=== PATIENT | male | born 1980 | race Caucasian/White ===

== ENCOUNTER 2018-10-16 22:43 | Emergency (ER) | payer MEDICAID, SELFPAY ==
[2018-10-16 22:48] VITALS: BP 125/70; PULSE 97; RESP 18; TEMP 36.7; O2SAT 98
--- NOTE | 2018-10-16 23:13 | W.ED.GENAD ---
Discharge Plan Disposition Patient Disposition: HOME Condition: Good Discharge Details Chief Complaint: Orthopedic Clinical Impression: Tendonitis of wrist, right Primary Care Provider: Jennifer Alves ED Provider: Jam Avitia Meds and New Rx's Prescriptions: New lidocaine [Lidoderm] 5 % Adhesive Patch,Medicated 1 patch Topical DIRECTED Qty: 5 RF: 0 ibuprofen 800 mg tablet 800 mg PO TID Qty: 20 RF: 0 Continue dextroamphetamine 10 mg capsule, extended release 10 mg PO DAILY MDD 1 cap 30 Days Qty: 30 RF: 0 Discharge Instructions Instructions: Tendinitis (ED) Additional Instructions: Wear the splint to limit movement of the thumb and wrist. Ibuprofen for anti-inflammatory effect. Lidoderm patch for pain. May also take Tylenol. Will refer to orthopedics for follow-up next week. Return to ED for fever, chills, worsening pain, worsening redness or swelling. Referrals: [facility] [Provider Group] Medical Decision Making Patient with evidence of tendinitis which may be involving the thumb and wrist extensor tendons. He does have a little bit of erythema distal forearm but no fluctuance or warmth. He is very tender in this area and pain occurs here with ROM of thumb or wrist. There is not actual pain in the wrist/thumb itself. There is no tenderness in the forearm muscles. Pulses are normal. Decreased subjective sensation in all three nerve distributions of the hand, patient states chronically numb but seems worse. He denies IV drug use. He denies fever/chills. He denies trauma. Quick bedside U/S shows no obvious abscess. Will treat as tendonitis with ibuprofen and thumb spica splint. Refer to ortho for follow up next week. Lidoderm patch on distal forearm to help with pain. Return to ED for worse pain, fever, chills, increase swelling/redness. HPI General Mode of arrival: ambulatory. Date/Time Provider Initiated Documentation: 10/16/18 23:03. Limitations to Documentation: no limitations. Information obtained by: patient. HPI Narrative: Patient presents to ED with complaint of right wrist pain. He is an ambidextrous fairchild. He started to have pain in the right wrist forearm area 1-2 days ago. Tonight it is so severe he cannot move his wrist. He denies any injury. He denies feeling ill otherwise. He has had no fevers or chills. He has tingling in his whole hand including the back of the hand and all the fingers. He is unable to make a fist because of pain. He is unable to flex the thumb at all. He has severe difficulty moving the wrist because of pain. He is not taking anything for pain. He comes in for evaluation. Related Data Home Medications Medication Instructions Recorded Confirmed dextroamphetamine ER 10 mg 10 mg PO DAILY 30 Days #30 cap MDD 10/16/18 10/16/18 capsule,extended release 1 cap ibuprofen 800 mg PO TID #20 tab 10/16/18 lidocaine [Lidoderm] 1 patch TOPICAL DIRECTED #5 ea 10/16/18 Previous Rx's Medication Instructions Recorded dextroamphetamine ER 10 mg 10 mg PO DAILY 30 Days #30 cap MDD 10/16/18 capsule,extended release 1 cap ibuprofen 800 mg PO TID #20 tab 10/16/18 lidocaine [Lidoderm] 1 patch TOPICAL DIRECTED #5 ea 10/16/18 Allergies Allergy/AdvReac Type Severity Reaction Status Date / Time morphine Allergy Intermediate HIVES Unverified 10/16/18 22:51 rofecoxib Allergy Intermediate Unverified 10/16/18 22:51 HORSE DANDER Allergy Intermediate Anaphylaxsi Uncoded 10/16/18 22:51 s General Stated Complaint: Orthopedic ARPITA: 4 Review of Systems Constitutional Denies chills and Denies fever(s) Cardiovascular Denies chest pain and Denies dyspnea Respiratory Denies dyspnea Musculoskeletal Reports arthralgias, Denies joint swelling, Reports limited range of motion and Reports tingling Integumentary/Breasts Reports erythema and Denies rash Neurologic Denies focal weakness and Reports tingling [facility] Medical History ADHD (Chronic) Migraine (Chronic) Social History Smoking/Tobacco Use Status: Current every day Surgical History Acromioplasty Arthroplasty of knee Nerve Decompression Open Carpal Tunnel release Repair, ACL SCREW REMOVAL Exam Const General: cooperative and uncomfortable Orientation: alert and oriented x3 Skin General skin exam: erythema (mild erythema along radial aspect of distal forearm) Rashes: no rashes Wounds: no wounds Neuro General: alert, oriented x3 and no focal motor deficits Sensory Exam: upper extremity (right hand tingling with subjective decreased sensation involving radial/ulna/median nerve distributions) Extrem Right upper extremity: elbow/forearm Details: tenderness Location: other (distal radial forearm) and normal ROM; no unusual warmth, wrist Details: normal to inspection, abnormal ROM Details: pain with active ROM during and pain with passive ROM during, radial pulse present and ulnar pulse present; no swelling and no unusual warmth and hand Details: normal to inspection, normal capillary refill, abnormal ROM of finger Details: pain with active ROM Location: of the thumb and pain with passive ROM Location: of the thumb and no swelling Course Vital Signs Temperature 98.1 F 10/16/18 22:48 Pulse 97 H 10/16/18 22:48 Respiratory Rate 18 10/16/18 22:48 Blood Pressure 125/70 10/16/18 22:48 Pulse Oximetry 98 10/16/18 22:48 Temperature 98.1 F 10/16/18 22:48 Temperature Source Skin 10/16/18 22:48 Pulse 97 H 10/16/18 22:48 Respiratory Rate 18 10/16/18 22:48 Respiratory Effort Non-Labored 10/16/18 22:50 Blood Pressure 125/70 10/16/18 22:48 Blood Pressure Position Sitting 10/16/18 22:48 Pulse Oximetry 98 10/16/18 22:48 Oxygen Delivery Method Room Air 10/16/18 22:48 Oxygen Flow Rate 0 10/16/18 22:48 Pain Level 8 10/16/18 22:48
[2018-10-16] MEDS: Ibuprofen 800 MG TAB PO (23:16)
--- NOTE | 2018-10-16 23:17 | ED.GENADUL_ITS ---
Discharge Plan Disposition Patient Disposition: HOME Condition: Good Discharge Details Chief Complaint: Orthopedic Clinical Impression: Tendonitis of wrist, right Primary Care Provider: Jennifer Alves ED Provider: Jam Avitia Meds and New Rx's Prescriptions: New lidocaine [Lidoderm] 5 % Adhesive Patch,Medicated 1 patch Topical DIRECTED Qty: 5 RF: 0 ibuprofen 800 mg tablet 800 mg PO TID Qty: 20 RF: 0 Continue dextroamphetamine 10 mg capsule, extended release 10 mg PO DAILY MDD 1 cap 30 Days Qty: 30 RF: 0 Discharge Instructions Instructions: Tendinitis (ED) Additional Instructions: Wear the splint to limit movement of the thumb and wrist. Ibuprofen for anti- inflammatory effect. Lidoderm patch for pain. May also take Tylenol. Will refer to orthopedics for follow-up next week. Return to ED for fever, chills, worsening pain, worsening redness or swelling. Referrals: [facility] [Provider Group] Medical Decision Making Patient with evidence of tendinitis which may be involving the thumb and wrist extensor tendons. He does have a little bit of erythema distal forearm but no fluctuance or warmth. He is very tender in this area and pain occurs here with ROM of thumb or wrist. There is not actual pain in the wrist/thumb itself. There is no tenderness in the forearm muscles. Pulses are normal. Decreased subjective sensation in all three nerve distributions of the hand, patient states chronically numb but seems worse. He denies IV drug use. He denies fever/chills. He denies trauma. Quick bedside U/S shows no obvious abscess. Will treat as tendonitis with ibuprofen and thumb spica splint. Refer to ortho for follow up next week. Lidoderm patch on distal forearm to help with pain. Return to ED for worse pain, fever, chills, increase swelling/redness. HPI General Mode of arrival: ambulatory . Date/Time Provider Initiated Documentation: 10/16/18 23:03 . Limitations to Documentation: no limitations . Information obtained by: patient . HPI Narrative: Patient presents to ED with complaint of right wrist pain. He is an ambidextrous fairchild. He started to have pain in the right wrist forearm area 1-2 days ago. Tonight it is so severe he cannot move his wrist. He denies any injury. He denies feeling ill otherwise. He has had no fevers or chills. He has tingling in his whole hand including the back of the hand and all the fingers. He is unable to make a fist because of pain. He is unable to flex the thumb at all. He has severe difficulty moving the wrist because of pain. He is not taking anything for pain. He comes in for evaluation. Related Data Home Medications Medication Instructions Recorded Confirmed dextroamphetamine ER 10 mg 10 mg PO DAILY 30 Days #30 cap MDD 10/16/18 10/16/18 capsule,extended release 1 cap ibuprofen 800 mg PO TID #20 tab 10/16/18 lidocaine [Lidoderm] 1 patch TOPICAL DIRECTED #5 ea 10/16/18 Previous Rx's Medication Instructions Recorded dextroamphetamine ER 10 mg 10 mg PO DAILY 30 Days #30 cap MDD 10/16/18 capsule,extended release 1 cap ibuprofen 800 mg PO TID #20 tab 10/16/18 lidocaine [Lidoderm] 1 patch TOPICAL DIRECTED #5 ea 10/16/18 Allergies Allergy/AdvReac Type Severity Reaction Status Date / Time morphine Allergy Intermediate HIVES Unverified 10/16/18 22:51 rofecoxib Allergy Intermediate Unverified 10/16/18 22:51 HORSE DANDER Allergy Intermediate Anaphylaxsi Uncoded 10/16/18 22:51 s General Stated Complaint: Orthopedic ARPITA: 4 Review of Systems Constitutional Denies chills and Denies fever(s) Cardiovascular Denies chest pain and Denies dyspnea Respiratory Denies dyspnea Musculoskeletal Reports arthralgias, Denies joint swelling, Reports limited range of motion and Reports tingling Integumentary/Breasts Reports erythema and Denies rash Neurologic Denies focal weakness and Reports tingling [facility] Medical History ADHD (Chronic) Migraine (Chronic) Social History Smoking/Tobacco Use Status: Current every day Surgical History Acromioplasty Arthroplasty of knee Nerve Decompression Open Carpal Tunnel release Repair, ACL SCREW REMOVAL Exam Const General: cooperative and uncomfortable Orientation: alert and oriented x3 Skin General skin exam: erythema (mild erythema along radial aspect of distal forearm ) Rashes: no rashes Wounds: no wounds Neuro General: alert, oriented x3 and no focal motor deficits Sensory Exam: upper extremity (right hand tingling with subjective decreased sensation involving radial/ulna/median nerve distributions) Extrem Right upper extremity: elbow/forearm Details: tenderness Location: other ( distal radial forearm) and normal ROM; no unusual warmth, wrist Details: normal to inspection, abnormal ROM Details: pain with active ROM during and pain with passive ROM during, radial pulse present and ulnar pulse present; no swelling and no unusual warmth and hand Details: normal to inspection, normal capillary refill, abnormal ROM of finger Details: pain with active ROM Location: of the thumb and pain with passive ROM Location: of the thumb and no swelling Course Vital Signs Temperature 98.1 F 10/16/18 22:48 Pulse 97 H 10/16/18 22:48 Respiratory Rate 18 10/16/18 22:48 Blood Pressure 125/70 10/16/18 22:48 Pulse Oximetry 98 10/16/18 22:48 Temperature 98.1 F 10/16/18 22:48 Temperature Source Skin 10/16/18 22:48 Pulse 97 H 10/16/18 22:48 Respiratory Rate 18 10/16/18 22:48 Respiratory Effort Non-Labored 10/16/18 22:50 Blood Pressure 125/70 10/16/18 22:48 Blood Pressure Position Sitting 10/16/18 22:48 Pulse Oximetry 98 10/16/18 22:48 Oxygen Delivery Method Room Air 10/16/18 22:48 Oxygen Flow Rate 0 10/16/18 22:48 Pain Level 8 10/16/18 22:48
[2018-10-16] MEDS: Lidocaine 5% Patch 1 PATCH TP (23:30)
== END 2018-10-16 23:39 | disposition home or self-care (01) ==
PROVIDERS: Emergency Provider Emergency Medicine; PCP Family Medicine
DX: M65.831 Other synovitis and tenosynovitis, right forearm (principal); R20.2 Paresthesia of skin
CPT/HCPCS: 29125; 99283; L3807

== ENCOUNTER 2018-11-16 17:10 | Emergency (ER) | payer MEDICAID, SELFPAY ==
[2018-11-16 17:12] VITALS: BP 119/80; PULSE 66; RESP 18; TEMP 36.8; O2SAT 99
--- NOTE | 2018-11-16 18:13 | ED.GENADUL_ITS ---
Discharge Plan Disposition Patient Disposition: HOME Condition: Stable Discharge Details Chief Complaint: Nk/Back Pain Clinical Impression: Strain of lumbar paraspinal muscle, Sciatica Primary Care Provider: Jennifer Alves ED Provider: Luzmaria Bingham Home Meds and New Rx's Prescriptions: New cyclobenzaprine 10 mg tablet 10 mg PO TID PRN (Reason: muscle spasm) Qty: 10 RF: 0 Continued dextroamphetamine 10 mg capsule, extended release 10 mg PO DAILY MDD 10 mg Qty: 30 RF: 0 ibuprofen 800 mg tablet 800 mg PO TID Qty: 20 RF: 0 No Action prednisone 20 mg tablet 20 mg PO DAILY Qty: 12 RF: 0 Discharge Instructions Instructions: Sciatica (ED), Low Back Strain (ED) Additional Instructions: Alternate ice and heat to the affected area several times daily for 20 minutes at a time. Alternate Tylenol and Motrin as needed and directed for pain. Take the Flexeril as needed and directed for pain not relieved with Tylenol or Motrin. Follow-up with your primary care doctor in 1 week for reevaluation. Return immediately to the emergency department any worsening or new concerning symptoms. Stand Alone Forms: Work Release Discharge Data Discharge Date/Time-TO BE ENTERED AT DEPARTURE: 11/16/18 19:02 Discharge Physician: Luzmaria Bingham Medical Decision Making 38yo M w/ a h/o migraines and ADHD on dextroamphetamine w/ R sided lower back pain with radiation to R buttock x 2 weeks, worse today after lifting an object. No cauda equina symptoms. Pain worse with movement and weightbearing. Pt appears uncomfortable. Appears uncomfortable with antalgic gait. Tenderness to palpation R lumbar paraspinal region. Neurovascularly intact. No focal deficits. Appears c/w lumbar strains/sciatica. Pt drove himself here. Allergy list notes an allergy to rofecoxib but pt states he has tolerated motrin in the past w/o allergy. Will give a dose of toradol IM and send home with a prescription for flexeril. Pt requests a work note for the next 2 days. Pt instructed to f/u with his pcp for re-evaluation and return here if worse. HPI General Mode of arrival: ambulatory . Date/Time Provider Initiated Documentation: 11/16/18 17:24 . Limitations to Documentation: no limitations . Information obtained by: patient . HPI Narrative: Pt is a 38yo M w/ a h/o migraines and ADHD on dextroamphetamine who presents to the ED with R sided lower back pain x 2 weeks, worse today after lifting an object. Pt admits to radiation of pain to his R buttock. He hasn't taken anything for pain today. He denies fever, abdominal pain, urinary or fecal incontinence, saddle anesthesia, leg weakness or numbness. Related Data Home Medications Medication Instructions Recorded Confirmed ibuprofen 800 mg PO TID #20 tab 10/16/18 11/19/18 cyclobenzaprine 10 mg PO TID PRN #10 tab 11/16/18 11/19/18 dextroamphetamine ER 10 mg 10 mg PO DAILY #30 cap MDD 10 mg 11/16/18 11/19/18 capsule,extended release prednisone 20 mg tablet 20 mg PO DAILY #12 tab 11/19/18 11/19/18 Previous Rx's Medication Instructions Recorded ibuprofen 800 mg PO TID #20 tab 10/16/18 cyclobenzaprine 10 mg PO TID PRN #10 tab 11/16/18 dextroamphetamine ER 10 mg 10 mg PO DAILY #30 cap MDD 10 mg 11/16/18 capsule,extended release prednisone 20 mg tablet 20 mg PO DAILY #12 tab 11/19/18 Allergies Allergy/AdvReac Type Severity Reaction Status Date / Time morphine Allergy Intermediate HIVES Unverified 11/19/18 09:53 rofecoxib Allergy Intermediate Unverified 11/19/18 09:53 HORSE DANDER Allergy Intermediate Anaphylaxsi Uncoded 11/19/18 09:53 s General Stated Complaint: Nk/Back Pain ARPITA: 4 Review of Systems Review of Systems All systems reviewed & are unremarkable except as noted in HPI and below Constitutional Reports as per HPI, Denies chills and Denies fever(s) Eyes Denies blurry vision ENT Denies dizziness, Denies sore throat and Denies throat swelling Cardiovascular Denies chest pain and Denies dyspnea Respiratory Denies dyspnea Gastrointestinal Denies abdominal pain, Denies diarrhea and Denies vomiting Genitourinary Denies hematuria and Denies dysuria Musculoskeletal Reports back pain and Denies numbness Integumentary/Breasts Denies lesions and Denies rash Neurologic Denies dizziness and Denies numbness Allergic/Immunologic Denies throat swelling [facility] Medical History ADHD (Chronic) Migraine (Chronic) Surgical History Acromioplasty Arthroplasty of knee Nerve Decompression Open Carpal Tunnel release Repair, ACL SCREW REMOVAL Social History Smoking/Tobacco Use Status: Current every day Exam Const General: cooperative, healthy appearing and no acute distress HENMT Head: normal to inspection Face and sinus: normal facial exam Eyes General: appearance normal, both eyes and all related structures EOM: EOM intact bilaterally Neck Neck: normal visual inspection and No submandibular swelling Lymphatic: no lymphadenopathy noted Chest Chest: normal inspection of the chest and no tenderness Resp Effort & Inspection: normal respiratory effort and able to speak in complete sentences Auscultation: clear to auscultation bilaterally Cardio Rate: regular rate Rhythm: regular rhythm GI Inspection: normal to inspection Palpation: soft, not firm, not rigid and nontender Auscultation: normal bowel sounds Back/Spine/Pelvis Thoracic/Lumbar Spine: thoracic and lumbar spine normal to inspection, straight leg raise negative bilaterally, paraspinal tenderness (Tenderness to palpation R lumbar paraspinal region ), No thoracic spinal tenderness and No lumbar spinal tenderness Pelvis: no pain with anterior-posterior compression, no buttock ecchymosis, buttock tenderness on the right and no buttock swelling Sacrum: no ecchymosis and no erythema Skin General skin exam: no rashes or lesions noted Neuro General: alert, awake and oriented x3 Cognition: normal cognition Speech: speech normal Gait: antalgic Motor: muscle tone normal throughout and strength 5/5 throughout Sensory Exam: no sensory deficits noted Extrem General: normal to inspection, full ROM, normal capillary refill, no calf tenderness bilaterally and no edema Psych Appearance: grossly normal Mental Status: mental status grossly normal Speech and Movement: speech and movement normal Affect: normal affect Course Vital Signs Temperature 98.2 F 11/16/18 17:12 Pulse 66 11/16/18 17:12 Respiratory Rate 18 11/16/18 17:12 Blood Pressure 119/80 11/16/18 17:12 Pulse Oximetry 99 11/16/18 17:12 Temperature 98.2 F 11/16/18 17:12 Temperature Source Skin 11/16/18 17:12 Pulse 66 11/16/18 17:12 Respiratory Rate 18 11/16/18 17:12 Respiratory Effort 11/16/18 17:16 Blood Pressure 119/80 11/16/18 17:12 Blood Pressure Position Sitting 11/16/18 17:12 Pulse Oximetry 99 11/16/18 17:12 Pain Level 8 11/16/18 17:12
[2018-11-16 18:52] VITALS: BP 119/80; PULSE 66; RESP 18; TEMP 36.8; O2SAT 99
== END 2018-11-16 19:02 | disposition home or self-care (01) ==
PROVIDERS: Emergency Provider Physician Assistant; PCP Family Medicine
DX: S39.012A Strain of muscle, fascia and tendon of lower back, initial encounter (principal); M54.41 Lumbago with sciatica, right side; X50.0XXA Overexertion from strenuous movement or load, initial encounter
CPT/HCPCS: 96372; 99284

== ENCOUNTER 2018-11-23 10:10 | Outpatient (CLI) | payer MEDICAID, SELFPAY ==
--- NOTE | 2018-11-23 09:00 | DI.RAD_ITS ---
SYMPTOMS/DIAGNOSIS: LOW BACK PAIN, M54.5 LUMBOSACRAL SPINE: Five views were obtained. There is disc space narrowing at L5-S1, suggesting disc degeneration. Otherwise, the intervertebral disc spaces are well maintained. Minimal hypertrophic spurring of the facets and vertebral endplates is noted. 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
== END 2018-11-23 10:30 ==
PROVIDERS: PCP Family Medicine; Visit Provider Family Medicine
DX: M54.5 Low back pain (principal); M51.37 Other intervertebral disc degeneration, lumbosacral region
CPT/HCPCS: 72110

== ENCOUNTER 2020-06-08 01:29 | Outpatient (CLI) | payer MEDICAID, SELFPAY ==
[2020-06-08 11:19] LABS: Abs Immature Grans 0.02 k/cumm (0.0-0.09); Absolute Basophil Count 0.02 k/cumm (0.0-0.2); Absolute Eosinophil Count 0.07 k/cumm (0.0-0.7); Absolute Lymphocyte Count 1.68 k/cumm (1.2-3.4); Absolute Neutrophil Count 5.16 k/cumm (1.2-6.7); Basophils % 0.3; Eosinophils % 0.9; HCT 43.5 % (40.0-50.0); HGB 15.2 g/dL (13.5-17.5); Immature Grans % 0.3 %; Mean Corp. HGB Concentration 34.9 g/dL (32.0-36.0); Mean Corpuscular Hemoglobin 31.7 pg (27.0-33.0); Mean Corpuscular Volume 90.6 fL (80-95); Mean Platelet Volume 8.8 fL (8.0-11.0); Monocytes % 9.2; Neutrophils % 67.3; Platelet Count 383 x1000/uL (130-400); RBC Distribution Width 13.1 % (11.8-14.1); White Blood Cell Count 7.65 k/cumm (4.4-10.8)
[2020-06-08 14:23] LABS: ALT 36 U/L (16-63); AST 17 U/L (15-37); Albumin 3.9 g/dL (3.4-5.0); Alkaline Phosphatase 79 U/L (46-116); BUN 16 mg/dL (7-18); Bilirubin, Total 0.4 mg/dL (0.2-1.0); CREATININE 1.15 mg/dL (0.70-1.30); Calcium 9.1 mg/dL (8.5-10.1); Chloride 105 mmol/L (98-107); Glucose 169 mg/dL (74-106); Potassium 4.3 mmol/L (3.5-5.1); Sodium 142 mmol/L (136-145); TSH 0.76 uIU/mL (0.36-3.74); Total Protein 6.7 g/dL (6.4-8.2)
== END 2020-06-08 01:49 ==
PROVIDERS: PCP Family Medicine; Visit Provider Family Medicine
DX: R00.0 Tachycardia, unspecified (principal)
CPT/HCPCS: 36415; 80053; 84443; 85025

== ENCOUNTER 2021-07-05 09:49 | Outpatient (CLI) | payer OTHER, SELFPAY ==
--- NOTE | 2021-07-05 08:45 | DI.RAD_ITS ---
Exam(s) XR WRIST RT COMPLETE EXAM: XR WRIST RT COMPLETE CLINICAL HISTORY: right wrist pain. TECHNIQUE: 2D digital imaging was performed. COMPARISON: No exams were available for comparison FINDINGS: There is no evidence of fracture nor carpal dislocation nor significant ulnar variance. No osseous l esions nor erosions. However, there is significant narrowing of the joint space between the distal a spect of the scaphoid and lunate bones and the proximal capitate. The radiocarpal joint itself appea rs unremarkable and the scapholunate distance is normal. Incidentally noted is a corticated 2 millimeter calcific density in the joint space of the 1st carpom etacarpal joint, this being the articulation between the thumb metacarpal and trapezium. Sign IMPRESSION: DATA REPOSITORY: RADIATION DOSE DELIVERED:
== END 2021-07-05 09:50 | disposition home or self-care (01) ==
LOC: DIORS 09:50
PROVIDERS: PCP Family Medicine; Referring Provider Nurse Practitioner Family; Visit Provider Student in an Organized Health Care Education/Training Program
DX: M25.531 Pain in right wrist (principal)
CPT/HCPCS: 73110

== ENCOUNTER 2023-05-29 14:51 | Outpatient (CLI) | payer MEDICAID, SELFPAY ==
[2023-05-29 15:31] LABS: Abs Immature Grans 0.06 10^3/uL (0.0-0.06); Absolute Basophil Count 0.03 10^3/uL (0.0-0.2); Absolute Eosinophil Count 0.12 10^3/uL (0.0-0.7); Absolute Lymphocyte Count 2.43 10^3/uL (1.2-3.4); Absolute Monocyte Count 0.77 10^3/uL (0.1-0.8); Absolute Neutrophil Count 4.25 10^3/uL (1.2-6.7); Basophils % 0.4; Eosinophils % 1.6; HCT 39.5 % (40.0-50.0); HGB 13.7 g/dL (13.5-17.5); Immature Grans % 0.8; Lymphocytes % 31.7; MCH 30.6 pg (27.0-33.0); MCHC 34.7 % (32.0-36.0); MCV 88 fL (80-95); MPV 8.7 fL (8.0-11.0); Monocytes % 10.1; Neutrophils % 55.4; Platelet Count 317 10^3/uL (130-400); RBC 4.47 10^6/uL (4.36-5.78); RDW 12.5 % (11.8-14.1); RDW-SD 40.9 fL; WBC 7.66 10^3/uL (4.4-10.8)
[2023-05-29 15:58] LABS: ALT 58 U/L (16-63); AST 37 U/L (15-37); Albumin 3.8 g/dL (3.4-5.0); Alkaline Phosphatase 90 U/L (46-116); Anion Gap 10.8 mmol/L (3-11); BUN 16 mg/dL (7-18); Bilirubin, Total 0.2 mg/dL (0.2-1.0); CO2 25.2 mmol/L (21.0-32.0); CREATININE 0.9 mg/dL (0.70-1.30); Calcium 9.1 mg/dL (8.5-10.1); Calculated LDL 123 mg/dL (<100); Chloride 103 mmol/L (98-107); Cholesterol 240 mg/dL (<200); Estimated GFR 108.68 (mL/min/1.73m2); Glucose 97 mg/dL (74-106); HDL Cholesterol 55 mg/dL (40-60); Potassium 3.9 mmol/L (3.5-5.1); Sodium 139 mmol/L (136-145); Total Protein 7.6 g/dL (6.4-8.2); Triglyceride 310 mg/dL (<150)
[2023-05-29 16:03] LABS: Hemoglobin A1C 5.5 % (<5.7)
[2023-05-29 16:18] LABS: GGT 33 U/L (15-85)
[2023-05-30 10:39] LABS: HBs Antibody, Quant <3.1 mIU/mL (See Note); Hepatitis B Surface Ab Negative (See Note)
[2023-05-30 11:11] LABS: HIV-1/2 Ag & Ab Screen Negative (Negative)
[2023-05-30 11:28] LABS: Hepatitis A Antibody IgM Negative (Negative); Hepatitis B Core Antibody Negative (Negative); Hepatitis B surface Ag Negative (Negative); Hepatitis C Ab w Rflx HCV PCR Negative (Negative)
[2023-05-30 12:31] LABS: HCV RNA Qualitative Undetected (Undetected)
[2023-06-02 19:03] LABS: HCV Genotype Undetected (Undetected)
== END 2023-05-29 14:52 | disposition home or self-care (01) ==
LOC: LBO 14:52
PROVIDERS: PCP Nurse Practitioner Family; Visit Provider Nurse Practitioner Family
DX: Z13.1 Encounter for screening for diabetes mellitus (principal); Z13.220 Encounter for screening for lipoid disorders; F11.20 Opioid dependence, uncomplicated
CPT/HCPCS: 36415; 80053; 80061; 86704; 86706; 86709; 86803; 87340; 87389; 87522; 82977; 83036; 85025; 87521

== ENCOUNTER 2023-10-17 08:25 | Outpatient (CLI) | payer MEDICAID, SELFPAY ==
--- NOTE | 2023-10-17 08:00 | DI.RAD_ITS ---
Exam(s) XR KNEE RT 3V AP,LAT,EDDIE EXAM: XR KNEE RT 3V AP,LAT,EDDIE CLINICAL HISTORY: RIGHT KNEE PAIN. TECHNIQUE: 2D digital imaging was performed. COMPARISON: No exams were available for comparison FINDINGS: No evidence of acute fracture nor obvious joint effusion. There is an AP orientated screw in the pro ximal tibia. There are significant degenerative changes, most prominent in the medial compartment. Also mild medial subluxation of the femoral condyles upon the tibial plateau. IMPRESSION: Previous surgery. Degenerative changes. DATA REPOSITORY: RADIATION DOSE DELIVERED:
== END 2023-10-17 08:26 | disposition home or self-care (01) ==
LOC: DIORS 08:26
PROVIDERS: PCP Nurse Practitioner Family; Referring Provider Nurse Practitioner Family; Visit Provider Physician Assistant
DX: M17.11 Unilateral primary osteoarthritis, right knee (principal); Z98.890 Other specified postprocedural states
CPT/HCPCS: 73562

== ENCOUNTER 2023-12-08 05:14 | Outpatient (CLI) | payer MEDICAID, SELFPAY ==
[2023-12-08 09:40] LABS: HCT 44.3 % (40.0-50.0); HGB 15.6 g/dL (13.5-17.5); MCH 30.9 pg (27.0-33.0); MCHC 35.2 % (32.0-36.0); MCV 88 fL (80-95); MPV 8.7 fL (8.0-11.0); Platelet Count 349 10^3/uL (130-400); RBC 5.05 10^6/uL (4.36-5.78); RDW 12.2 % (11.8-14.1); RDW-SD 38.9 fL; WBC 6.25 10^3/uL (4.4-10.8)
[2023-12-08 10:14] LABS: Anion Gap 7.5 mmol/L (3-11); BUN 17 mg/dL (7-18); CO2 28.5 mmol/L (21.0-32.0); CREATININE 1.2 mg/dL (0.70-1.30); Chloride 103 mmol/L (98-107); Estimated GFR 76.48 (mL/min/1.73m2); Glucose 99 mg/dL (74-106); Potassium 3.8 mmol/L (3.5-5.1); Sodium 139 mmol/L (136-145)
== END 2023-12-08 05:15 | disposition home or self-care (01) ==
LOC: LBO 05:14
PROVIDERS: PCP Nurse Practitioner Family; Visit Provider Student in an Organized Health Care Education/Training Program
DX: M25.561 Pain in right knee (principal); M17.11 Unilateral primary osteoarthritis, right knee; Z01.818 Encounter for other preprocedural examination; Z01.812 Encounter for preprocedural laboratory examination
CPT/HCPCS: 36415; 80048; 85027

== ENCOUNTER 2023-12-08 12:42 | Outpatient (CLI) | payer MEDICAID, SELFPAY ==
--- NOTE | 2023-12-08 08:30 | DI.RAD_ITS ---
Exam(s) XR STANDING ALIGNMENT EXAM: XR STANDING ALIGNMENT CLINICAL HISTORY: pre op R TKA. TECHNIQUE: 2D digital imaging was performed. Four images were obtained. COMPARISON: CR RIGHT KNEE COMPLETE from 01/19/2018 CR XR KNEE RT 3V AP,LAT,EDDIE from 10/17/2023 FINDINGS: BONES: The hips are well maintained. Moderately severe degenerative changes are again seen in the ri ght knee with narrowing and spurring in predominantly involving the medial femoral tibial joint. The re is again seen an orthopedic screw in the anterior tibial tuberosity. The left knee is well mainta ined. 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 The ankles are well maintained.The right lower extremity measures 95.2 cm. The left lower extremity measures 96.5 cm. SOFT TISSUE: Normal. IMPRESSION: Moderately severe degenerative changes in the right knee. DATA REPOSITORY: RADIATION DOSE DELIVERED:
== END 2023-12-08 12:43 | disposition home or self-care (01) ==
LOC: DIORS 12:43
PROVIDERS: PCP Nurse Practitioner Family; Visit Provider Physician Assistant
DX: M17.11 Unilateral primary osteoarthritis, right knee (principal)
CPT/HCPCS: 77073

== ENCOUNTER 2023-12-16 07:03 | Day surgery (SDC) | payer MEDICAID, SELFPAY ==
[2023-12-16] VITALS (9 sets, daily range): BP systolic 106–127; BP diastolic 59–88; PULSE 75–89; RESP 12–20; TEMP 36.3–36.9; O2SAT 20–99; BMI 25.3
--- NOTE | 2023-12-16 07:24 | W.PM.DSUDISC ---
Date of service: 12/16/23 Time of Service: 07:28 Discharge Plan Disposition Patient Disposition: Home Condition: Good Discharge Details Reason For Visit: Right knee DJD Attending Provider: Cornell Sevilla Primary Care Provider: Harman Pak Home Meds and New Rx's Prescriptions: New acetaminophen 500 mg tablet 1,000 mg PO Q8H PRN Qty: 90 0RF Rx Instructions: Take two tablets up to every 8 hours as needed for pain aspirin 81 mg tablet,delayed release (DR/EC) 81 mg PO BID 30 Days Qty: 60 0RF docusate sodium [Colace] 100 mg capsule 100 mg PO BID Qty: 30 0RF dexamethasone 4 mg tablet 4 mg PO DAILY Qty: 2 0RF Rx Instructions: Take one tablet once daily for two days gabapentin 300 mg capsule 300 mg PO QHS Qty: 14 0RF Rx Instructions: Take one tablet at bedtime pantoprazole 40 mg tablet,delayed release (DR/EC) 40 mg PO DAILY Qty: 14 0RF oxycodone 10 mg tablet 10 mg PO Q4H PRNQty: 18 0RF Rx Instructions: Take one tablet up to every 4 hours as needed for severe postoperative pain ibuprofen 600 mg tablet 600 mg PO TID PRN (Reason: pain) Qty: 90 3RF Continued buprenorphine-naloxone [Suboxone] 8-2 mg film 2 film sublingual DAILY Rx Instructions: place 1 strip/tab under (each) side of tongue amitriptyline 100 mg tablet 100 mg PO QHS Qty: 90 3RF dextroamphetamine-amphetamine [Adderall XR] 20 mg capsule,extended release 24hr 20 mg PO DAILY MDD 20mg Qty: 28 0RF Discharge Instructions Additional Instructions: Total Knee Discharge Instructions Activity: The most important activity is to walk and to work on gentle motion (both flexion and extension). You should try to take short walks a few times a day. It is important that when resting you work on keeping the knee straight. Avoid putting a pillow behind the knee as this will encourage flexion. Work on range of motion exercises as provided by Physical Therapy. - Start outpatient physical therapy within 2 weeks. - You should wear the BELGICA hose on both legs for 2 weeks. You may remove these at night. You may also use any compression sock in place of the BELGICA hose. - Utilize [employer] to review exercises, see videos on exercises and obtain basic information pertaining to your surgery and your recovery. Dressing: Remove the Gama wrap by 2 days after your surgery and put on the BELGICA stocking given to you from the hospital. Keep the surgical dressing (underneath the GAMA wrap) in place for at least one week. After the first week it may be removed and replaced with light gauze and tape or nothing. The wound and dressing may get wet after 3 days but avoid soaking the dressing or otherwise it will need to be changed. Many people prefer covering the dressing with cling wrap (saran wrap) to minimize it from getting soaked. If it gets wet, just pat dry. If it starts to peel off then it will need to be changed. Medications: - You should take Tylenol and anti-inflammatory Ibuprofen as your primary pain control medications. - You have been prescribed a stronger pain medication Oxycodone for breakthrough pain, take as needed as prescribed. - You have also been prescribed a stomach acid reduction agent Pantoprozole to help reduce stomach acid and reflux. - You have been prescribed Gabapentin to take at night for restlessness and nerve pain. - You will be taking Aspirin 81mg twice a day for DVT prevention unless instructed otherwise. - You have also been prescribed Decadron to take to control post-operative nausea and pain. You will start this tomorrow. - If you have constipation you should take Colace (which has been prescribed) or Miralax (which is available [id number]). It takes most people 3-4 days to have a bowel movement. Follow-up: 2 weeks If you have any acute concerns or questions, please do not hesitate to contact the office at [phone]. You may contact Dr. Sevilla with any questions after hours through the hospital at [phone] or on his cell phone at [phone]. Stand Alone Forms: Anesthesia Discharge Inst., Triny.Nerve Block Instructions, [facility] Guadalupe Jerome ([facility]) Referrals: Cornell Sevilla MD [ [facility] STAFF PHYSICIAN] - 12/29/23 1:30 pm Equipment/Supplies: Walker Activity:: Elevate Remove Dressings/Wound Care:: Do Not Remove Shower/Bathe:: 72 hours and Cover Diet:: As Tolerated Discharge Orders Discharge Orders: Discharge Order (Routine); Ordered 12/16/23 Ordered By: Tamar Edmond
[2023-12-16] MEDS: Gabapentin 300 MG CAP PO (07:46)
[2023-12-16] MEDS: Acetaminophen 500 MG TAB 1000 MG PO (07:46)
[2023-12-16] MEDS: Lactated Ringers 1,000 ML 80 ML IV (08:00)
--- NOTE | 2023-12-16 08:06 | W.ANESPRE ---
General Info Date of Service Date Performed: 12/16/23 Height: 5 ft 11 in Weight: 82.5 kg Body Mass Index (BMI): 25.3 Surgical Procedure: Operation Date: 12/16/23 09:10 Proposed Procedure Side Surgeon p Knee Total Arthroplasty w/OrthAlign, Cementless CR Right Cornell Sevilla MD Meds Allergies and Home Medications Allergies Allergy/AdvReac Type Severity Reaction Status Date / Time morphine Allergy Intermediate HIVES Verified 12/16/23 07:43 rofecoxib Allergy Intermediate Anaphylaxis Verified 12/16/23 07:43 HORSE DANDER Allergy Intermediate Anaphylaxsi Uncoded 12/16/23 07:43 s Home Medication Medication Instructions Recorded buprenorphine 8 mg-naloxone 2 mg 2 film sublingual DAILY 07/05/21 sublingual film (Suboxone) amitriptyline 100 mg tablet 100 mg PO QHS #90 tabs 05/29/23 dextroamphetamine-amphetamine ER 20 mg PO DAILY #28 caps 11/19/23 20 mg 24hr capsule,extend release (Adderall XR) acetaminophen 500 mg tablet 1,000 mg (2 x 500 mg) PO Q8H PRN 12/16/23 pain #90 tabs aspirin 81 mg tablet,delayed 81 mg PO BID 30 days #60 tabs 12/16/23 release celecoxib 200 mg capsule (Celebrex) 200 mg PO BID PRN #60 caps 12/16/23 dexamethasone 4 mg tablet 4 mg PO DAILY #2 tabs 12/16/23 docusate sodium 100 mg capsule 100 mg PO BID #30 caps 12/16/23 (Colace) gabapentin 300 mg capsule 300 mg PO QHS #14 caps 12/16/23 oxycodone 10 mg tablet 10 mg PO Q4H PRN #18 tabs 12/16/23 pantoprazole 40 mg tablet,delayed 40 mg PO DAILY #14 tabs 12/16/23 release Current Visit Medications: Current Medications Generic Name Dose Route Start Last Admin Trade Name Freq PRN Reason Stop Dose Admin Acetaminophen 1,000 mg 12/16/23 06:00 12/16/23 07:46 Acetaminophen 500 Mg Tab PO 01/15/24 05:59 1,000 mg PREOP ASHLEY Administration Gabapentin 300 mg 12/16/23 06:00 12/16/23 07:46 Gabapentin 300 Mg Cap PO 01/15/24 05:59 300 mg PREOP ASHLEY Administration Hydromorphone HCl 0.5 mg 12/16/23 07:22 Hydromorphone 2 Mg/Ml Syr IVP 01/15/24 07:21 Q2H PRN PRN Tranexamic Acid 1,000 mg/ 60 mls @ 360 mls/hr 12/16/23 06:00 Sodium Chloride IVPB 01/15/24 05:59 PREOP ASHLEY Ringer's Solution 1,000 mls @ 80 mls/hr 12/16/23 06:00 12/16/23 08:00 IV 12/16/23 23:59 80 mls/hr INFUSION ASHLEY Administration Cefazolin Sodium/Dextrose 2 gm in 50 mls @ 100 mls/hr 12/16/23 06:00 Ancef Duplex IVPB 12/16/23 23:59 PREOP ASHLEY Cefazolin Sodium/Dextrose 1 gm in 50 mls @ 100 mls/hr 12/16/23 08:00 Ancef Duplex IVPB 12/17/23 00:29 Q8H ASHLEY IV Miscellaneous Supplies 1 each 12/16/23 06:00 Iv Access IV 12/16/23 23:59 DIRECTED ASHLEY Oxycodone HCl 0 mg 12/16/23 07:22 Oxycodone 5 Mg Tab PO 01/15/24 07:21 Q3H PRN PRN Pain Sodium Chloride 0 ml 12/16/23 06:00 Normal Saline Flush 10 Ml Syr IV 12/16/23 23:59 PRN PRN Sodium Chloride 0 ml 12/16/23 06:00 Normal Saline 10 Ml Vial IJ 12/16/23 23:59 DIRECTED PRN Sterile Water 0 ml 12/16/23 06:00 Water,Injection,Sterile 10 Ml Vial IJ 12/16/23 23:59 DIRECTED PRN PFSH Active Problems Active Problems: Problem Status Onset Code Degenerative joint disease of right knee M17.11 Right knee pain M25.561 Arthritis of wrist, 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 Right wrist pain M25.531 Tachycardia R00.0 Tobacco use disorder F17.200 Intractable migraine without aura and with status migrainosus 01/22/17 G43.011 Depressive disorder F32.9 Chronic daily headache 01/22/17 R51 Borderline personality disorder F60.3 Attention deficit hyperactivity disorder, predominantly inattentive type F90.0 Medical History Medical History History of alcoholism Quit drinking in 2017 Substance abuse (10/30/03) Quit in 2020 pain meds Migraine ADHD Surgical History Surgical History H/O right wrist surgery s/p right wrist fusion x2 - [place] [facility] [place] post reconstruction of anterior cruciate ligament SCREW REMOVAL REMOVAL OF TIBIAL FIXATION SCREW ON THE RIGHT FROM ONE OF HIS ACL SURGERIES. Repair, ACL RIGHT KNEE X 2 Open Carpal Tunnel release RIGHT and Left Nerve Decompression RIGHT ULNAR NERVE Acromioplasty AND DISTAL CLAVICLE RESECTION, RIGHT SHOULDER Tobacco Smoking/Tobacco Use Status: Current every day Tobacco Type: e-cigarettes Alcohol Alcohol Intake: former Substance Use Substance use: Never Substance use type: former substance user Details: 12/16/23: pt reports he vapes Vital Signs and Lab Results Vital Signs Most Recent Vital Signs in EMR: Most Recent Vital Signs Temp Pulse Resp BP Pulse Ox 36.7 C 85 20 124/80 20 L 12/16/23 07:29 12/16/23 07:29 12/16/23 07:29 12/16/23 07:29 12/16/23 07:29 Lab Results Blood Type / Crossmatch: No Data to Display Complete Blood Count: White Blood Count 6.25 10^3/uL (4.4-10.8) 12/08/23 09:30 Red Blood Count 5.05 10^6/uL (4.36-5.78) 12/08/23 09:30 Hemoglobin 15.6 g/dL (13.5-17.5) 12/08/23 09:30 Hematocrit 44.3 % (40.0-50.0) 12/08/23 09:30 Platelet Count 349 10^3/uL (130-400) 12/08/23 09:30 Complete Metabolic Panel: Sodium 139 mmol/L (136-145) 12/08/23 09:30 Potassium 3.8 mmol/L (3.5-5.1) 12/08/23 09:30 Chloride 103 mmol/L (98-107) 12/08/23 09:30 Carbon Dioxide 28.5 mmol/L (21.0-32.0) 12/08/23 09:30 BUN 17 mg/dL (7-18) 12/08/23 09:30 Creatinine 1.2 mg/dL (0.70-1.30) 12/08/23 09:30 Est GFR (CKD-EPI 2020) 76.48 (mL/min/1.73m2) 12/08/23 09:30 Calcium 9.0 mg/dL (8.5-10.1) 12/08/23 09:30 Glucose 99 mg/dL (74-106) 12/08/23 09:30 Liver Function Panel: No Data to Display Coagulation Panel: No Data to Display Cardiac Panel: No Data to Display Arterial Blood Gas: No Data to Display Venous Blood Gas: No Data to Display Pancreas Panel: No Data to Display Thyroid Panel: No Data to Display Infectious Disease: No Data to Display Blood Cultures: No Data to Display Toxicology Panel: No Data to Display Anesthesia Assessment and Plan Anesthesia History Personal History: No History of Anesthesia Complications Family History: No Family History of Anesthesia Complications Exercise Tolerance Exercise Tolerance: Metabolic Equivalents>4 Pertinent Negatives Pertinent Negatives: No Symptoms of GERD Cardiac & Pulmonary Exam Cardiac Exam: Normal S1/S2 Heart Sounds Pulmonary Exam: Clear Bilateral Breath Sounds Implantable Cardiac Device Does patient have a Pacemaker or an ICD?: No Airway Exam Known Difficult Airway: No Mallampati Class: 1 Mouth Opening: Normal (> 3cm) Thyromental Distance: Greater than 3 cm Neck Range of Motion: Full ROM Neck Circumference: Normal Teeth Condition: Normal Dentition ASA Classification ASA Score: ASA 2 Emergency Case?: No NPO Status NPO Status: NPO Clears >2 hours, Solids >8 hours Anesthesia Plan Resuscitation Status: Full Code Anesthesia Technique: Spinal Anesthesia Airway Planned: Natural Airway Pain Management: Surgeon and patient request nerve block Monitors Used: Standard Monitors
--- NOTE | 2023-12-16 08:48 | W.ANESNERVE ---
Nerve Block Single Injection Procedure Date and Time Date Performed: 12/16/23 Procedure Start: 08:37 Location Where Procedure Performed Procedure Location: Day Surgery Unit Reason Performed: Postoperative Analgesia Requesting Provider: Cornell Sevilla Timeout Performed Timeout Performed: Yes Monitoring Used ECG, Blood Pressure, SpO2 and See EMR for corresponding vital signs Sterility Sterility: Hand Hygiene, Surgical Cap, Surgical Mask, Sterile Gloves, Eye Protection and Chlorhexidine Sedation Given During Procedure Sedation Given (Indicate Dose Given): Versed IV Dose:: 4mg IVP Patient Mental Status Patient Mental Status: Sedate with meaningful communication Nerve Block 1st Nerve Block: Laterality: Right Block Type: Adductor Canal Ultrasound Image Saved?: Yes Needle / Catheter Used: 100mm SonoPlex II Local Anesthetic Bolus (Indicate Dose Given): Lidocaine used for local infiltration of skin, Injected in 3-5ml increments after negative blood aspiration and Ropivacaine 0.5% Dose:: 0.5%/25cc (125mg) Additives (Indicate Dose Given): Epinephrine to make 1:200,000 (5mcg/ml) Dose:: 125mcg/25cc (1:200,000) Ultrasound: Sterile probe cover and gel used Nerve Stimulator: Not Used Paresthesia: None Procedure Tolerated: No Complications and Patient tolerated well Procedure Outcome: Successful Performed By: Rajendra Boyd
[2023-12-16] MEDS: ceFAZolin 2 GM/50 ML BAG IVPB (09:26)
--- NOTE | 2023-12-16 12:29 | W.ANESPOSTOP ---
Postoperative Evaluation Date, Time and Location Date Performed: 12/16/23 Time Performed: 12:29 Patient Location: Day Surgery Unit Vital Signs Most Recent Imported Vital Signs: Most Recent Vital Signs Temp Pulse Resp BP Pulse Ox 36.4 C L 83 20 117/78 98 12/16/23 12:00 12/16/23 12:00 12/16/23 12:00 12/16/23 12:00 12/16/23 12:00 Pain Score Most Recent Pain Score: Most Recent Pain Score Pain Level 0 12/16/23 12:00 Assessment Mental Status: Awake (Alert & Oriented to Patient Baseline) Airway and Respiratory Function: Patent airway with normal (patient baseline) respiratory exam Cardiovascular Function: Hemodynamically Stable Hydration Status: Adequately Hydrated Nausea & Vomiting: No Nausea or Vomiting Pain: Pt. Denies Any Pain Peripheral Nerve Block: Regional nerve block not resolved at time of post operative discharge
--- NOTE | 2023-12-16 13:07 | PT.INIE ---
PT Notes Visit Reasons: Right knee DJD Physical Therapy Day Surgery Initial Evaluation Date: 12/16/2023 Referring Doctor: GABINO Medina PT Orders: PT CONSULT: S/P Ortho surgery Precautions: WBAT on the right LE with AD. Patient Profile/Admitting Diagnosis: Quentin is a 43-year-old male with degenerative joint disease of the right knee and is status post right total knee arthroplasty on postoperative day 0. PMHX: Medical History (Updated 12/08/23 @ 08:56 by Tamar Edmond) History of alcoholism Quit drinking in 2016Substance abuse (10/30/03) Quit in 2020 pain meds Migraine ADHD Surgical History (Updated 12/08/23 @ 08:56 by Tamar Edmond) H/O right wrist surgery s/p right wrist fusion x2 - latest surgery was 09/12/23 [facility] [place] Status post reconstruction of anterior cruciate ligament SCREW REMOVAL REMOVAL OF TIBIAL FIXATION SCREW ON THE RIGHT FROM ONE OF HIS ACL SURGERIES.Repair, ACL RIGHT KNEE X 2 Open Carpal Tunnel release RIGHT and Left Nerve Decompression RIGHT ULNAR NERVE Acromioplasty AND DISTAL CLAVICLE RESECTION, RIGHT SHOULDER Social History/Home Situation: Lives with in a private home with 5 steps to enter with rails on both sides. Independent with all aspects of ADLs prior to surgery. Equipment Owned/DME: None Subjective: Per patient, pain increasing to 4/10 slowly when PT came in but patient is very motivated to do better and go home as soon as he is able to. Denies headache, chest pain, and lightheadedness throughout. Objective: General Observation: SURESH wraps to R LE. Cryocuff to R knee. TEDS to L leg. Mental Status: Alert and oriented x 4 Pain: As above ROM: Right Lower Extremity: Hip flexion WFL. Hip abduction WFL. Knee flexion 10 to 100 degrees. Knee extension -10 degrees. Ankle dorsiflexion WFL. Ankle plantarflexion WFL. Left Lower Extremity: Hip flexion WFL. Hip abduction WFL. Knee flexion WFL. Ankle dorsiflexion WFL. Ankle plantarflexion WFL. Strength: Right Lower Extremity: Hip flexors 4/5. Hip abductors 4/5. Knee flexors 3-/5. Knee extensors 3-/5. Ankle dorsiflexors 5/5. Ankle plantarflexors 5/5. Left Lower Extremity:Hip flexors 5/5. Hip abductors 5/5. Knee flexors 5/5. Knee extensors 5/5. Ankle dorsiflexors 5/5. Ankle plantarflexors 5/5. Sensation: Intact as to pain and light pressure in B LE Bed Mobility/Transfers: Minimal cueing provided for use of B hands as needed for support, movement sequence, AD management, and and posture to reduce fall risk and minimize pain report Supine to sit stand by assist Sit to stand stand by assist Stand to sit stand by assist Bed to chair stand by assist Gait: Facilitated safe and correct performance of level surface ambulation covering a distance of 30 feet using front-wheeled walker with and step-through gait pattern and 150 feet using bilateral axillary crutches with standby assist using 3 point gait pattern with minimal verbal cueing for AD management, limb advancement, and posture to minimize fall risk and pain report. Stairs: Guided patient with safe and correct negotiation of 6 x 4 inch steps and 4 x 6 inch steps while holding onto bilateral rails with standby assist without report of increased pain, minimal verbal cueing provided for limb advancement, hand placement, and movement sequence to minimize fall risk and reduce pain level. Balance: Static Sitting: Normal Dynamic Sitting: Normal Static Standing: Good Dynamic Standing: Fair Special Tests: Mobility Limitations Standardized Measure [facility] 6 clicks Basic Mobility Inpatient Short Form: Raw Score: 24 CMS Score: 0% deficit Informed Consent/Education: Patient instructed in purpose of PT consult. Packet containing TKA exercise protocol has been given to patient. Education and training on initial set of exercises that can be done at home have been completed with patient. Trained patient with correct performance of exercises below to maximize motor control, joint flexibility, soft tissue extensibility of the R knee musculature: Access Code: [email or web address] URL: [email or web address] Date: 12/16/2023 Prepared by: Jennifer Yoder Exercises - Supine Quad Set - 1 x daily - 7 x weekly - 1 sets - 10 reps - 5 hold - Supine Heel Slide - 1 x daily - 7 x weekly - 1 sets - 10 reps - 5 hold - Supine Ankle Pumps - 1 x daily - 7 x weekly - 1 sets - 10 reps - 5 hold - Small Range Straight Leg Raise - 1 x daily - 7 x weekly - 1 sets - 10 reps - 5 hold - Seated January - 1 x daily - 7 x weekly - 1 sets - 10 reps - 5 hold Assessment: Given requires the use of bilateral axillary crutches for all mobility ADL performance to maximize independence and reduce fall risk. Patient presents with clinical signs and symptoms consistent with current/admitting diagnoses that have resulted to mobility limitations, gait instability, generalized weakness, and impairment of motor control as demonstrated by the following impairment level findings: 1. Decreased strength to R knee major muscle groups 2. Impaired standing balance 3. Limitation of joint range of motion in R knee Impairments are contributing to the following functional limitations: 1. Inability to safely ambulate without assistive device 2. Increase completion time for mobility ADL performance 3. Increased fall risk Patient is assessed as a [id number] moderate complexity based on the following: History: 43-year-old male with impairment level findings, functional limitations, and past medical history as indicated above Examination: Demonstrable impairment in strength, balance, and mobility level with underlying impairments and functional limitations as documented above Presentation: Evolving Decision Makin moderate complexity Goals: N/A. PT evaluation and 1-2 treatment sessions only for functional mobility training using recommended AD and for HEP instruction. Plan of Care/Treatment Plan: N/A. PT evaluation and 1-2 treatment session only for functional mobility training using recommended AD and for HEP instruction. DISCHARGE RECOMMENDATIONS: Home when medically cleared by orthopedic surgeon. Recommend outpatient PT services in order to optimize functional mobility outcomes and facilitate return to independent community ambulation without an assistive device. TREATMENT CODE/TIME: 23639 x 22 minutes for 1 unit beginning at 13:07 PM. Thank you for the opportunity to participate in the care of this patient. Please sign an return this page within 30 days if you agree with the above POC. Thank you! Physician Signature Date [facility] Jennifer Yoder PT, DPT, CLT [facility] [place], [place]
[2023-12-16] MEDS: oxyCODONE 5 MG TAB PO (13:14)
--- NOTE | 2023-12-16 14:24 | W.PM.OP ---
Date of service: 12/16/23 Time of Service: 09:30 Operative Note Operative Note DATE OF PROCEDURE: 12/16/23 PRE-OP DIAGNOSIS: Post-traumatic Right Knee Osteoarthritis POST-OP DIAGNOSIS: same PROCEDURE: Right Total Knee Replacement with Intraoperative Navigation SURGEON: Cornell Sevilla COOK CHILL TECHNICIAN: Tamar Edmond ANESTHESIA TYPE: Spinal Refer to Anesthesia Record ESTIMATED BLOOD LOSS: 100 PATHOLOGY: none sent TOURNIQUET TIME: 0 COMPLICATIONS: None Patient was transported to: PACU Patient's condition: stable Implants: 1. Depuy Attune Cementless Cruciate Retaining Femoral Component, Size 7 2. Depuy Attune Cementless Fixed Bearing Tibial Component, Size 5 3. Depuy Attune 7x5 CR/FB Poly 4. Depuy Attune Patellar Component, Size 35 Indications: I have seen Quentin in clinic for symptoms of RIGHT knee arthritis, confirmed with radiographic findings. Quentin has exhausted nonoperative methods and was having significant limitations in daily function and desired better function and less pain. I discussed the technical details of a knee replacement. I explained the risks of the procedure to include, but not limited to, bleeding, infection, pain, stiffness, fracture, damage to nerves and vessels, damage to muscles and tendons, loosening, need for repeat procedure, blood clot and cardiopulmonary demise. Despite these risks, Quentin elected to proceed. Findings: There was significant signs of arthritis throughout the knee. A single screw was removed from the tubercle for tibial implant positioning. Procedure Description: Quentin was greeted in the preoperative holding area where the correct side was identified and marked. The consent was reviewed with the patient and signed. The history and physical was updated. All questions were answered. Preoperative mediacations were administered: Acetaminophen 1000mg, Celebrex 400mg, and Gabapentin 300mg. An adductor canal block was then administered by the anesthesia team in the PACU. Quentin was taken back to the operating room. A spinal anesthestic was then administered. The patient was placed into the supine position on the operating room table. A nonsterile tourniquet was placed high onto the leg. Posts were placed for positioning during the procedure. All bony prominences were well padded. Prophylactic antibiotics in the form of Cefazolin were administered. 1g of Tranxemic Acid was given intravenously within 30 minutes of incision. The right leg was then prepped with Chloraprep and draped in a standard fashion with impervious stockinette. A second prep with Chloraprep was performed prior to application of Iodine impregnated skin protection. A timeout to confirm correct identity, side and site, procedure, allergies, anesthesia, and medical concerns was performed. With the knee in some flexion, a midline incision was made overlying the knee. Full thickness skin flaps were raised once the extensor mechanism was encountered. These were raised medially and laterally. Any bleeding was controlled with electrocautery. Once the extensor mechanism was fully exposed, a medial parapatellar arthrotomy was performed in a flexed position. All bleeding from the arthrotomy and the geniculate arteries was coagulated. A medial subperiosteal peel was performed with electrocautery to the midcoronal plane. Due to the significant varus deformity the entire medial tibial plateau was exposed. The fat pad was removed while keeping the patellar tendon protected. The anterior distal femur synovium was removed for later visualization. The ACL and PCL were resected and the anterior horn of the lateral meniscus was transected. The knee was then flexed with the patella everted. Large osteophytes from the tibia were removed. Large osteophytes from the femur were removed. A single starting pin was then placed 1cm anterior to the PCL insertion and the notch in the direction of the femoral head. The OrthoAlign device was applied over the pin. It was oriented to be in line with the epicondylar axis and the trochlear groove. It was then pinned into place. The navigation computer was then turned on and calibrated. The distal femur cut was set at 0.5 degrees varus and 3.5 degrees flexion. The distal femur cutting guide then was positioned for a 9mm cut. The distal femur was cut with an oscillating saw while protecting the soft tissues. The tibia was then addressed. The OrthoAlign device was placed over the tibial tubercle and medial tibia and secured into position. Once again, OrthoAlign was calibrated and then set for a 1.5 degree varus cut and 5.5 degrees of posterior slope. With this locked into position, the cut thickness stylus was used to assess cut thickness. The medial side, most involved side, was set for a 4mm cut. This was then held in position and pinned into place with 2 additional pins and a cross pin for stability. The medial and lateral collateral ligaments were protected and the cut was performed. With this completed, it was assessed and noted to be of appropriate dimensions. The guide and OrthoAlign was removed. A spacer block was inserted and the knee was brought into extension to ensure enough space was present. . The Orthoalign gap balancing device was then placed in extension. This was used to ensure that the ligaments were properly balanced with up to 2 to 3 mm laxity laterally compared medially. The extension gap was measured as 17mm. The knee was then brought into 90 degrees of flexion and the ligament managing director atlas was once again placed. Under the same amount of force the flexion gap was measured. The Attune specific jig was placed and the flexion gap was made to match the extension gap. The femur was then sized as a size 7. The 4-in-1 cutting guide was the placed. An jimmy wing was used to confirm appropriate position of the anterior cut to avoid notching. This cutting guide was ensured to be flush on the cut surface and then pinned into place with headed pins. While protecting the soft tissues, quad tendon, and collateral ligaments, the anterior and posterior cuts were performed with a saw. The central two pins were removed and the posterior and anterior chamfers were cut next. The notch-cutting guide was placed. This was pinned to lateralize the femoral component as much as possible while keeping it flush on the cut surface. This was then pinned into position. A saw was used to make the notch cut. A rasp smoothed the cut surfaces. The medial and lateral menisci were removed. A trial femoral component was then inserted, impacted down to the cut surfaces, and the lug holes were drilled. A provisional trial tibial component was placed and the knee was brought through range of motion. There was noted to be excellent extension and flexion. There was no significant instability. The patella was tracking without thumbs. A size 5mm polyethylene component provided the best range of motion and stability with less than 2mm gapping with medial and lateral stress and full extension without significant hyperextension. The tibial cut surface was fully exposed. The tibia was then sized as a 5. The tibia had been previously marked during trialing to correspond to the center of the tibial component to help with rotation. The trial was aligned to this winnie, approximately rotated to the medial 1/3rd of the tibial tubercle. The trial was pinned into place. The single screw in the tibial tubercle was removed at this time through a longitudinal split of the fibers of the patellar ligament. The screw head was palpable. Was identified and removed without difficulty. This was done in order to allow positioning of the tibial component. Then, the tibia was prepared with a reamer and a keel punch and lug holes. The knee was then brought into extension and the patella was measured as 26mm. Using the patellar clamp and cut guide, this was resected to a flat surface with at least 13mm of thickness remaining. The size 35 patella fit the best. This was oriented and then clamped into position. The lugs were drilled. The trial components were removed. The final components were opened on the back table. The periosteal and capsular tissues, especially posteriorly, around the knee were then systematically injected with a periarticular cocktail consisting of 246mg of Ropivacaine, 0.5mg of Epinephrine, 0.08mg of Clonidine, and 30mg of Ketorolac, diluted to 100cc. On the back table, with the implants opened, the cement was mixed. One batch of high viscosity cement was prepared with vacuum assistance. After the cement was ready a small amount was placed on the cut surface of the patella and the patellar button was clamped into position and held. While the cement was hardening, the cementless knee components were placed. Starting with the tibial component, the tibia was subluxed anteriorly and the lug holes of the component were lined up. The tibia was then impacted with an impactor and mallet until the tibial component was in contact with the tibia. Then, the femoral component was inserted. The lug holes were aligned and the component was impacted into position. The final polyethylene component was inserted. The knee was irrigated with Irrisept chlorhexadine solution. This was allowed to sit in the knee for 3 minutes and then it was thoroughly irrigated out with saline. After the cement had finally cured, approximately 15min, the clamp was removed from the patella and the knee was taken through range of motion. The patella was tracking with a no-thumbs technique. The capsule was then reapproximated with a No. 1 Vicryl at multiple locations. The capsule was finally closed with a No. 2 Stratafix, barbed suture. Deep tissues were then reapproximated with 0 Vicryl and 2-0 Vicryl. The skin was closed with a running 3-0 Monocryl in a subcuticular fashion. This was reinforced with skin glue. A Mepilex silver dressing was applied along with a [id number] SURESH wrap. A CryoCuff was applied. Quentin was transferred to the hospital bed without difficulty an suffering no apparent complication. Quentin has a good prognosis. Physical therapy will start today and without restrictions, weight-bearing as tolerated. Aspirin 81mg BID will be used for DVT prophylaxis.
== END 2023-12-16 14:00 | disposition home or self-care (01) ==
PROVIDERS: PCP Nurse Practitioner Family; Visit Provider Student in an Organized Health Care Education/Training Program
PROC: (CPT 27447; principal; 2023-12-16 09:00)
DX: M17.11 Unilateral primary osteoarthritis, right knee (principal); F17.210 Nicotine dependence, cigarettes, uncomplicated; F32.A Depression, unspecified; Z79.899 Other long term (current) drug therapy
CPT/HCPCS: 27447; 20985; 76942; 97162; C1776; J0171; J0690; J1100; J2001; J2250; J2371; J2401; J2405; J2704

== ENCOUNTER 2023-12-29 13:49 | Outpatient (CLI) | payer MEDICAID, SELFPAY ==
--- NOTE | 2023-12-29 13:30 | DI.RAD_ITS ---
Exam(s) XR STANDING ALIGNMENT XR KNEE RT 1V EXAM: XR STANDING ALIGNMENT and XR knee RT 1 V CLINICAL HISTORY: POST OP RIGHT TKR. TECHNIQUE: 2D digital imaging was performed. Five images were obtained. COMPARISON: CR XR KNEE RT 3V AP,LAT,EDDIE from 10/17/2023 CR XR STANDING ALIGNMENT from 12/08/2023 FINDINGS: BONES: The hips are well maintained. The patient has a right total knee replacement. The orthopedic hardware appears in good position. No suspicious lucencies are seen around the orthopedic hardware. There is mild soft tissue swelling around the right knee. The left knee joint spaces appear unrema rkable. 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 The ankles are well maintained.Th ere is no significant leg length discrepancy. SOFT TISSUE: Normal. IMPRESSION: Right total knee replacement which appears in good position. DATA REPOSITORY: RADIATION DOSE DELIVERED:
== END 2023-12-29 13:50 | disposition home or self-care (01) ==
LOC: DIORS 13:49
PROVIDERS: PCP Nurse Practitioner Family; Visit Provider Student in an Organized Health Care Education/Training Program
DX: Z96.651 Presence of right artificial knee joint (principal); Z47.1 Aftercare following joint replacement surgery
CPT/HCPCS: 73560; 77073

== ENCOUNTER 2024-01-27 20:06 | Emergency (ER) | payer MEDICAID, SELFPAY ==
[2024-01-27 20:09] VITALS: BP 135/84; PULSE 106; RESP 18; TEMP 36.7; O2SAT 98
--- NOTE | 2024-01-27 20:15 | DI.RAD_ITS ---
Exam(s) XR KNEE RT 3V AP,LAT,EDDIE EXAM: XR KNEE RT 3V AP,LAT,EDDIE CLINICAL HISTORY: fell, twisted R knee. s/p right knee replacement. TECHNIQUE: 2D digital imaging was performed. Three views. COMPARISON: CR XR KNEE RT 1V from 12/29/2023 FINDINGS: BONES: No acute fracture is present. No bony destructive lesion is seen. JOINTS: A total knee prosthesis is again noted. The knee is normally aligned. A joint effusion is se en. SOFT TISSUE: Anterior swelling, similar to prior. IMPRESSION: Stable appearance of total knee prosthesis. DATA REPOSITORY: RADIATION DOSE DELIVERED:
--- NOTE | 2024-01-27 20:31 | ED.GENADUL_ITS ---
Discharge Plan Discharge Details Chief Complaint: Orthopedic Primary Care Provider: Harman Pak ED Provider: Moon Martinez Home Meds and New Rx's Prescriptions: No Action buprenorphine-naloxone [Suboxone] 8-2 mg film 2 film sublingual DAILY Rx Instructions: place 1 strip/tab under (each) side of tongue amitriptyline 100 mg tablet 100 mg PO QHS Qty: 90 3RF dextroamphetamine-amphetamine [Adderall XR] 20 mg capsule,extended release 24hr 20 mg PO DAILY MDD 20mg Qty: 28 0RF acetaminophen 500 mg tablet 1,000 mg PO Q8H PRN Qty: 90 0RF Rx Instructions: Take two tablets up to every 8 hours as needed for pain HPI General Date/Time Provider Initiated Documentation: 01/27/24 20:22 . HPI Narrative: Quentin is a 43-year-old male who presents to the emergency department today for evaluation of right knee pain. He reports that he tripped while walking down the stairs, causing him to twist and landed on his right knee. he has been experiencing pain and swelling to the knee since incident. No change in distal numbness/tingling. He has been able to bear weight since incident. He reports that he hit his head lightly, but denies headache, dizziness, loss of consc iousness, vision changes, nausea/vomiting, neck pain, back pain.He is 6 weeks status post total knee replacement, this was performed by Dr. Sevilla. He has not had an uncomplicated recovery until now. He denies history of substance abuse, alcohol use, or chronic illness. Related Data Home Medications Medication Instructions Recorded Confirmed buprenorphine 8 mg-naloxone 2 mg 2 film sublingual DAILY 07/05/21 01/27/24 sublingual film (Suboxone) amitriptyline 100 mg tablet 100 mg PO QHS #90 tabs 05/29/23 01/27/24 acetaminophen 500 mg tablet 1,000 mg (2 x 500 mg) PO Q8H PRN 12/16/23 01/27/24 pain #90 tabs dextroamphetamine-amphetamine ER 20 mg PO DAILY #28 caps 01/14/24 01/27/24 20 mg 24hr capsule,extend release (Adderall XR) Previous Rx's Medication Instructions Recorded amitriptyline 100 mg tablet 100 mg PO QHS #90 tabs 05/29/23 acetaminophen 500 mg tablet 1,000 mg (2 x 500 mg) PO Q8H PRN 12/16/23 pain #90 tabs dextroamphetamine-amphetamine ER 20 mg PO DAILY #28 caps 01/14/24 20 mg 24hr capsule,extend release (Adderall XR) Allergies Allergy/AdvReac Type Severity Reaction Status Date / Time morphine Allergy Intermediate HIVES Verified 01/27/24 20:13 rofecoxib Allergy Intermediate Anaphylaxis Verified 01/27/24 20:13 HORSE DANDER Allergy Intermediate Anaphylaxsi Uncoded 01/27/24 20:13 s General Stated Complaint: Orthopedic ARPITA: 4 Review of Systems Narrative: see HPI Exam Const General: cooperative, healthy appearing and anxious Neck Neck: normal visual inspection, full ROM, no midline deformity and nontender Back/Spine/Pelvis Back: No back tenderness Cervical Spine: cervical ROM normal Thoracic/Lumbar Spine: thoracic and lumbar spine normal to inspection, No thoracic spinal tenderness and No lumbar spinal tenderness Extrem Right lower extremity: knee Details: tenderness, swelling, abnormal ROM (decreased flexion) and other (no overlying abrasions/lacerations/skin tears); no deformity and no unusual warmth Left lower extremity: normal to inspection Course Vital Signs Vital signs: Vital Signs Temperature 36.7 C 01/27/24 20:09 Pulse 106 H 01/27/24 20:09 Respiratory Rate 18 01/27/24 20:09 Blood Pressure 135/84 01/27/24 20:09 Pulse Oximetry 98 01/27/24 20:09 Temperature 36.7 C 01/27/24 20:09 Temperature Source Temporal Artery Scan 01/27/24 20:09 Pulse 106 H 01/27/24 20:09 Respiratory Rate 18 01/27/24 20:09 Blood Pressure 135/84 01/27/24 20:09 Pulse Oximetry 98 01/27/24 20:09 Pain Level 7 01/27/24 20:09 Medical Decision Making Quentin is a 43-year-old male who presents to the emergency department today for evaluation of right knee pain. He reports that he tripped while walking down the stairs, causing him to twist and landed on his right knee. he has been experiencing pain and swelling to the knee since incident. No change in distal numbness/tingling. He has been able to bear weight since incident. He reports that he hit his head lightly, but denies headache, dizziness, loss of consciousness, vision changes, nausea/vomiting, neck pain, back pain.He is 6 weeks status post total knee replacement, this was performed by Dr. Sevilla. He has not had an uncomplicated recovery until now. He denies history of substance abuse, alcohol use, or chronic illness. Physical exam remarkable for significant tenderness with palpation of anterior knee, with swelling to the superior and lateral aspects of the knee. Decreased range of motion to knee due to pain. No point tenderness. +CMS to foot. No distal edema. Small abrasion noted to right hand. Painless range of motion to neck. No C-spine/T-spine/L-spine tenderness/step-off/deformity. D/dx includes but is not limited to: hardware dysfunction, fracture, soft tissue injury, sprain Quality:SDOH Health Related Social Needs: No Data to Display PFSH All Active Problems (Updated 12/16/23 @ 13:42 by Yaron Kramer RN) History of total right knee replacement (Acute 12/16/23) Right knee pain (Acute) Arthritis of wrist, right (Acute) Surgical intervention Right wrist pain (Acute) Tachycardia (Acute) Denies recent changes Tobacco use disorder (Acute) Quit in 2020 Intractable migraine without aura and with status migrainosus (Acute 01/22/17) Depressive disorder (Acute) Chronic daily headache (Acute 01/22/17) Borderline personality disorder (Acute) Attention deficit hyperactivity disorder, predominantly inattentive type (Acute) Medical History (Updated 12/16/23 @ 13:42 by Yaron Kramer RN) History of alcoholism Quit drinking in 2017 Substance abuse (10/30/03) Quit in 2020 pain meds Migraine ADHD Surgical History (Updated 12/16/23 @ 13:41 by Yaron Kramer RN) H/O right wrist surgery s/p right wrist fusion x2 - latest surgery was 09/12/23 [facility] [place] Status post reconstruction of anterior cruciate ligament SCREW REMOVAL REMOVAL OF TIBIAL FIXATION SCREW ON THE RIGHT FROM ONE OF HIS ACL SURGERIES. Repair, ACL RIGHT KNEE X 2 Open Carpal Tunnel release RIGHT and Left Nerve Decompression RIGHT ULNAR NERVE Acromioplasty AND DISTAL CLAVICLE RESECTION, RIGHT SHOULDER Social History (Updated 11/14/23 @ 08:26 by German Haider, DO) Smoking/Tobacco Use Status: Current every day Tobacco Type: e-cigarettes Smoking risk assessment performed?: Yes Alcohol Intake: former Drug use: Never Substance use type: former substance user Details: 12/16/23: pt reports he vapes Housing: house Do you feel safe at home: Yes Do you feel safe in your relationship?: Yes
[2024-01-27] MEDS: Acetaminophen 325 MG TAB 650 MG PO (20:44)
--- NOTE | 2024-01-27 21:29 | DI.VRAD_ITS ---
PROCEDURE INFORMATION: Exam: XR Right Knee Exam date and time: 01/27/2024 8:57 PM Age: 43 years old Clinical indication: Injury or trauma; Fall; Injury date: 01/27/24; Injury details: Fell, twisted R knee. S/P right knee replacement; Prior surgery; Surgery date: 1-6 months; Surgery type: Knee replacement 6 weeks ago TECHNIQUE: Imaging protocol: Radiologic exam of the right knee. Views: 4 or more views. COMPARISON: No relevant prior studies available. FINDINGS: Bones/joints: Right knee prosthesis in place. Osseous alignment is normal. No acute fracture. Soft tissues: Prominent prepatellar and suprapatellar soft tissue swelling. IMPRESSION: No acute fracture. Dictated and Authenticated by: Toro Murphy MD. Ordering:STEPHY Mustafa MD
== END 2024-01-28 00:12 | disposition home or self-care (01) ==
PROVIDERS: Emergency Provider Nurse Practitioner Family; PCP Nurse Practitioner Family
DX: M25.561 Pain in right knee (principal); M25.461 Effusion, right knee; F17.210 Nicotine dependence, cigarettes, uncomplicated; Z96.651 Presence of right artificial knee joint; W10.8XXA Fall (on) (from) other stairs and steps, initial encounter; Y93.01 Activity, walking, marching and hiking; Y92.098 Other place in other non-institutional residence as the place of occurrence of the external cause
CPT/HCPCS: 73562; 99283

== ENCOUNTER 2024-12-20 15:44 | Outpatient (CLI) | payer MEDICAID, SELFPAY ==
--- NOTE | 2024-12-20 13:15 | DI.RAD_ITS ---
Exam(s) XR KNEE RT 2V AP,LAT EXAM: XR KNEE RT 2V AP,LAT INDICATION: ANNUAL F/U S/P R TKA. COMPARISON: CR XR KNEE RT 1V from 12/29/2023 CR,XR XR KNEE RT 3V AP,LAT,EDDIE from 01/27/2024 TECHNIQUE: 2D digital imaging was performed. Two views. FINDINGS: Stable alignment of total knee prosthesis. No abnormal surrounding lucencies. DATA REPOSITORY: RADIATION DOSE DELIVERED:
== END 2024-12-20 15:45 | disposition home or self-care (01) ==
LOC: DIORS 15:45
PROVIDERS: PCP Nurse Practitioner Family; Visit Provider Student in an Organized Health Care Education/Training Program
DX: Z96.651 Presence of right artificial knee joint (principal); Z47.1 Aftercare following joint replacement surgery
CPT/HCPCS: 73560

== ENCOUNTER 2025-03-17 00:37 | Outpatient (CLI) | payer MEDICAID, SELFPAY ==
--- NOTE | 2025-03-17 07:30 | DI.MRI_ITS ---
Exam(s) MR CERVICAL SPINE WO EXAM: MR CERVICAL SPINE WO CLINICAL HISTORY: Failed PT,neck pain,m54.2 TECHNIQUE: Multiplanar multisequence MRI of the cervical spine was performed without intravenous con trast. COMPARISON: MR MRI - CERVICAL SPINE WO CONT from 06/09/2017 CR XR KNEE RT 2V AP,LAT from 12/20/2024 FINDINGS: CERVICOMEDULLARY JUNCTION: Intact with no evidence of cerebellar tonsillar ectopia. No obvious abnor mality of the odontoid process. No evidence of Chiari 1 malformation. CERVICAL SPINAL CORD: There is no abnormal signal in the cervical spinal cord and no evidence of foca l cord atrophy nor focal cord swelling. OSSEOUS:There are no cervical fractures evident. No significant osseous lesions in the cervical vert ebrae. There is mild straightening of the cervical curvature. INDIVIDUAL LEVELS: C2-3: No disc herniation nor central canal stenosis. No foraminal stenosis. No facet arthropathy. C3-4: Normal disc height. No disc herniation or central canal stenosis.Mild degenerative changes in the facet joints bilaterally. Mild bilateral foraminal stenosis mostly related to the facet arthropa thy. C4-5: Mildly decreased disc height. No disc herniation. Central canal dimensions lower normal. Mil d degenerative changes in the facet joints bilaterally. No significant foraminal stenosis. C5-6: Normal disc height and signal. No disc herniation or central canal stenosis. There are degene rative changes in the left facet joint; less so on the right side. Central canal dimensions are norm al. No foraminal stenosis on the right side. Minimal foraminal stenosis on the left side. C6-7: This level exhibits chronic disc space narrowing and anterior osseous lipping. Posteriorly the re is this annular bulging which is most prominent at the level of the exiting neural foramina bilate rally where there also bilateral Luschka joint osteophytes. Central canal dimensions are lower erin l. On the left side there is Luschka joint-disc complex causing significant narrowing of the exiting left neural foramen. On the opposite-right side at this level there is also Luschka joint-disc comp sarita causing foraminal narrowing on the right side. C7-T1: No disc herniation nor central canal stenosis. No facet arthropathy.No foraminal stenosis. IMPRESSION: 1. Main findings are at C6-7 level where there is chronic disc space narrowing with bilateral Luschka joint osteophyte-disc complexes, larger on the left side causing foraminal stenosis. Similar but sl ightly smaller finding on the right side at this level. Central canal dimensions are lower normal at this level. 2. There is mild bilateral foraminal stenosis at C3-4 level due to facet arthropathy. There are no d isc herniations at this level. 3. No evidence of significant central spinal canal stenosis. DATA REPOSITORY:
== END 2025-03-17 00:57 ==
LOC: DI 00:37
PROVIDERS: PCP Nurse Practitioner Family; Visit Provider Nurse Practitioner Family
DX: M50.323 Other cervical disc degeneration at C6-C7 level; M48.02 Spinal stenosis, cervical region
CPT/HCPCS: 72141

== ENCOUNTER 2025-06-08 14:02 | Outpatient (CLI) | payer MEDICAID, SELFPAY ==
[2025-06-08 13:43] LABS: Hemoglobin A1C 5.4 % (<5.7)
[2025-06-08 14:16] LABS: Calculated LDL 128 mg/dL (<100); Cholesterol 193 mg/dL (<200); HDL Cholesterol 42 mg/dL (>or=40); Triglyceride 118 mg/dL (<150)
== END 2025-06-08 14:03 | disposition home or self-care (01) ==
LOC: LBO 14:02
PROVIDERS: PCP Nurse Practitioner Family; Visit Provider Nurse Practitioner Family
DX: Z13.220 Encounter for screening for lipoid disorders (principal); Z13.1 Encounter for screening for diabetes mellitus
CPT/HCPCS: 36415; 80061; 83036

== ENCOUNTER 2025-07-14 11:51 | Outpatient (CLI) | payer MEDICAID, SELFPAY ==
[2025-07-14 11:18] LABS: ALT 41 U/L (16-63); AST 23 U/L (15-37); GGT 32 U/L (15-85)
== END 2025-07-14 11:52 | disposition home or self-care (01) ==
LOC: LBO 11:52
PROVIDERS: PCP Nurse Practitioner Family; Visit Provider Nurse Practitioner Adult Health
DX: F11.20 Opioid dependence, uncomplicated (principal)
CPT/HCPCS: 36415; 82977; 84450; 84460

== ENCOUNTER 2025-08-04 15:26 | Outpatient (CLI) | payer MEDICAID, SELFPAY ==
--- NOTE | 2025-08-04 14:53 | DI.RAD_ITS ---
Exam(s) XR WRIST LT COMPLETE EXAM: XR WRIST LT COMPLETE CLINICAL HISTORY: LEFT WRIST PAIN. TECHNIQUE: 2D digital imaging was performed. Three views. COMPARISON: None FINDINGS: BONES: No acute fracture is present. No bony destructive lesion is seen. JOINTS: There is narrowing of the capitate lunate joint. Is also mild narrowing of the hamate triquetrum joint. There is no widening of the scapholunate distance or abnormal tilt of the lunate SOFT TISSUE: Normal. IMPRESSION: Narrowing of the capitate lunate and hamate triquetrum joints. DATA REPOSITORY: RADIATION DOSE DELIVERED:
--- NOTE | 2025-08-04 14:53 | DI.RAD_ITS ---
Exam(s) XR WRIST RT COMPLETE EXAM: XR WRIST RT COMPLETE CLINICAL HISTORY: S/P R WRIST FUSION. TECHNIQUE: 2D digital imaging was performed. Three views. COMPARISON: CR XR WRIST RT COMPLETE from 07/05/2021 DX XR WRIST 3 VIEWS RIGHT from 09/01/2023 DX XR WRIST 3 VIEWS RIGHT from 09/24/2023 DX XR WRIST 3 VIEWS RIGHT from 11/05/2023 FINDINGS: BONES: No acute fracture is present. No bony destructive lesion is seen. JOINTS: There is a fixation plate in place extending from the distal radius through the proximal 3rd metacarpal carpal fusion. There has been resection of the proximal carpal row. There is bony fusion across the radiocarpal joint. SOFT TISSUE: Normal. IMPRESSION: Postsurgical changes of radiocarpal fusion. DATA REPOSITORY: RADIATION DOSE DELIVERED:
== END 2025-08-04 15:27 | disposition home or self-care (01) ==
LOC: DIORS 15:27
PROVIDERS: PCP Nurse Practitioner Family; Visit Provider Student in an Organized Health Care Education/Training Program
DX: M19.031 Primary osteoarthritis, right wrist (principal); M25.532 Pain in left wrist
CPT/HCPCS: 73110